=== PATIENT | male | born 1975 | race African-American/Black ===

== ENCOUNTER 2019-12-13 06:04 | Emergency (ER) | payer MEDICAID, OTHER ==
[~2019-12-13] VITALS: Ht 182.9 cm; Wt 160.0 kg
[~2019-12-13 06:04] MED LIST: ALPR2TAB2; EYE DROPS; VIC
[2019-12-13 06:54] VITALS: BP 145/82
== END 2019-12-13 06:55 | disposition home or self-care (01) ==
LOC: ER 06:04
DX: J45.909 Unspecified asthma, uncomplicated (principal); Z98.890 Other specified postprocedural states; Z88.6 Allergy status to analgesic agent
CPT/HCPCS: 99283